=== PATIENT | female | born 1985 | race Caucasian/White ===

== ENCOUNTER 2023-04-16 10:49 | Emergency (ER) | payer BC, SELFPAY ==
--- NOTE | 2023-04-16 11:10 | ED.ANXIETY ---
HPI - Anxiety General Chief Complaint: Anxiety Stated Complaint: anxiety Time Seen by Provider: 04/16/23 11:18 Source: patient Mode of arrival: ambulatory Limitations: no limitations History of Present Illness HPI narrative: 38-year-old female presents with concern for acute anxiety. She reports history of anxiety for which she takes Lexapro. She reports she has been on the same dose of Lexapro for about 8 years. She reports she has had increased anxiety over the last week. She reports it is causing her difficulty sleeping, nausea, difficulty eating and unclear thinking. She reports she has an appointment with her primary care doctor about it is not until April 29 and does not want to have to deal with the symptoms until then. She denies suicidal thoughts or ideations. MD complaint: anxiety Related Data Home Medications Medication Instructions Recorded Confirmed ethynodiol diacetate-ethinyl 1 tablet DIRECTED 04/16/23 04/16/23 estradiol 1 mg-35 mcg tablet Allergies Allergy/AdvReac Type Severity Reaction Status Date / Time diphenhydramine Allergy Intermediate Anxiety Verified 04/16/23 11:16 [From Laura] Review of Systems Review of Systems: CONSTITUTIONAL: Denies malaise, chills, sweats, or fever. Reports difficulty sleeping CARDIOVASCULAR: Denies chest pain, palpitations, or edema. RESPIRATORY: Denies cough or dyspnea. GASTROINTESTINAL: Denies abdominal pain, vomiting. Reports nausea and decreased appetite PSYCHIATRIC: Reports anxiety All systems reviewed & are unremarkable except as noted in HPI and below PMFSH Past Medical History Medical History (Updated 04/16/23 @ 11:37 by Gardenia Quinteros NP) Thaddeus-Danlos syndrome Seasonal allergic rhinitis Social History Social History Smoking status: Never smoker Alcohol intake: never Comments At time of signature, agree with nursing past medical, surgical, social and family history. There is no relevant family history pertinent to the presenting complaint Exam Narrative: GENERAL: Well-appearing, well-nourished, and in no acute distress. HEAD: Normocephalic, atraumatic. EYES: PERRLA, sclera clear ENT: Nares clear. Mucous membranes moist. NECK: Supple. CHEST: No respiratory distress. Clear to auscultation. No bony deformities, no asymmetry. Speaks in full sentences. HEART: Regular rate and rhythm. No murmur heard. Normal peripheral pulses. SKIN: Warm, dry, no visible rash. NEURO: Alert and oriented x3. PSYCH: Slightly tearful Course Course Emergency Course: Patient states that she has occasionally used Xanax when she has had acute anxiety attacks that has helped her come out of them. She reports she does not have a current prescription, she cannot get in her doctor until April 29. I told her I can not prescribe few until she sees her doctor, if she has worsening symptoms she is go to the emergency room. Patient is aware of diagnosis, understands and agrees to treatment plan. Anticipatory guidance given. Patient agrees to follow-up as directed and is aware of reasons to seek care at the emergency department. Portions of this record may have been created with voice recognition software Level of Care: Express Care Visit Vital Signs Vital signs: Reviewed. Critical Care Time Critical Care Time Critical Care Time: No Discharge Plan Discharge Clinical Impression: Acute anxiety Patient Disposition: Home, Self-Care Condition: Stable Instructions: Anxiety (ED) Additional Instructions: 1) Please follow-up with your primary care doctor as soon as he can. 2) If you have any worsening of symptoms or any other urgent concerns please go to the ER. 3) Please take medications as prescribed and continue taking your home medications as usual. 4) Please read and follow information included in discharge instructions. Prescriptions: New alprazolam [Xanax] 0.5 mg tablet 0.5 mg PO BID PRN (Reason: anxiety) Q
[2023-04-16 11:15] VITALS: BP 144/90; PULSE 99; RESP 16; TEMP 36.3; O2SAT 100
== END 2023-04-16 11:50 | disposition home or self-care (01) ==
PROVIDERS: Emergency Provider Nurse Practitioner; PCP Family Medicine
DX: F41.9 Anxiety disorder, unspecified (principal); Q79.60 Ehlers-Danlos syndrome, unspecified
CPT/HCPCS: 99213; G0463

== ENCOUNTER 2023-10-23 08:34 | Outpatient (CLI) | payer BC, SELFPAY ==
--- NOTE | ~2023-10-23 | DEXA_ITS ---
Bone Density Report Name: DIO LUU Age: 38 Sex: Female Ethnicity: White Date of : 1985 Indication: postmenopausal; secondary osteoporosis; Referring Provider: DEE DEE MATT Study: Bone densitometry was performed. Exam Date: October 23, 2023 Accession number: [id number] Bone Density: Region BMD T-score Z-score Classification AP Spine(L1-L4) 0.817 -2.1 -1.9 Osteopenia Femoral Neck (Left) 0.556 -2.6 -2.4 Osteoporosis Total Hip (Left) 0.710 -1.9 -1.8 Osteopenia Femoral Neck (Right) 0.598 -2.3 -2.0 Osteopenia Total Hip (Right) 0.733 -1.7 -1.6 Osteopenia Total Hip Mean 0.721 -1.8 -1.7 Osteopenia World Health Organization criteria for BMD impression classify patients as: Normal (T-score at or above -1.0), Osteopenia (T-score between -1.0 and -2.5), or Osteoporosis (T-score at or below -2.5). 10-year Fracture Risk: FRAX not reported because: Some T-score for Spine Total or Hip Total or Femoral Neck at or below -2.5 Clinical Information Provided by Patient: Has secondary osteoporosis Has used the following medications: Calcium Patient maximum height was 66 Menopause Age: 23 Drinks caffeinated beverages Onset of menses at age 14 Number of children 0 Missed period for more than 6 months in a row Impression: The patient has osteoporosis, based on the Left Femoral Neck T-score. Discussion: HIGH RISK OF FRACTURE. BONE DENSITY IS UNDESIRABLY LOW AT ONE OR MORE SKELETAL SITES, CONSISTENT WITH OSTEOPOROSIS. ALSO, BONE DENSITY IS LOWER THAN EXPECTED FOR AGE AND SEX AT ONE OR MORE SKELETAL SITES; RECOMMEND A DILIGENT SEARCH FOR SECONDARY CAUSES OF BONE LOSS. This patient's lowest T-score meets the World Health Organization's (WHO) criteria for osteoporosis at one or more sites (T-score -2.5 or below). In untreated patients, the risk of osteoporotic fracture increases approximately two-fold for each 1.0 SD decrease in T-score. Low bone density is not the only risk factor for fracture; also consider factors such as patient's age, frailty or poor health, risk of falling, risk of injury, previous osteoporotic fracture, family history of osteoporosis, cigarette smoking, low body weight, etc. Not everyone with low bone mineral density has osteoporosis; osteomalacia and other metabolic bone disorders should also be considered. Patients who have osteoporosis should be evaluated for specific diseases and conditions (secondary causes) that may cause or contribute to bone loss. The [place] Association of Clinical Endocrinologists (AACE) and National Osteoporosis Foundation (NOF) recommend pharmacologic intervention for all postmenopausal women whose T-score is in this range. Also, this patient's bone mineral density is below the range considered normal for healthy age-, sex-, and race-matched controls at least one site (Z-score -2.0 or below). This warrants careful evaluation for diseases and con
== END 2023-10-23 08:35 | disposition home or self-care (01) ==
PROVIDERS: PCP Family Medicine; Visit Provider Nurse Practitioner Family
DX: M85.80 Other specified disorders of bone density and structure, unspecified site (principal); Z78.0 Asymptomatic menopausal state
CPT/HCPCS: 77080

== ENCOUNTER 2024-01-15 09:39 | Emergency (ER) | payer BC, SELFPAY ==
--- NOTE | ~2024-01-15 | XR_ITS ---
EXAMINATION: XR chest 2V 01/15/2024 10:06 INDICATION: Cough for 3 weeks PROCEDURE: 2 view chest COMPARISON: No prior studies for comparison. FINDINGS: The lungs are clear. The cardiomediastinal silhouette is within normal limits. There are no pleural effusions. There is no pneumothorax suspected. IMPRESSION: 1: NO ACUTE CARDIOPULMONARY DISEASE. Reviewed, dictated and finalized at location B.
--- NOTE | 2024-01-15 09:44 | ED.URI ---
HPI - URI/Sore Throat General Chief Complaint: Upper Respiratory Infection Stated Complaint: Cough Time Seen by Provider: 01/15/24 09:44 Source: patient Mode of arrival: ambulatory Limitations: no limitations History of Present Illness HPI Narrative: Dara is a 38-year-old female patient presenting to the clinic today with complaints of a persistent cough x3 weeks. She reports sometimes the cough is dry and other times it can be productive. Is bringing up some green phlegm at times. Does not feel as though she has sinus pressure or congestion currently but does feel as though she has drainage going in the back of her throat. Denies any fever or chills. Denies any hemoptysis. Denies any chest pain or shortness of breath. MD elicited complaint: cough Related Data Home Medications Medication Instructions Recorded Confirmed ethynodiol diacetate-ethinyl 1 tablet DIRECTED 04/16/23 01/15/24 estradiol 1 mg-35 mcg tablet Allergies Allergy/AdvReac Type Severity Reaction Status Date / Time diphenhydramine Allergy Intermediate Anxiety Verified 01/15/24 09:57 [From Benannl] Review of Systems Review of Systems: Pertinent positives per HPI. Patient denies any fever, chills, rash, headache, visual changes, dizziness, shortness of breath, chest pain, palpitations, nausea, vomiting, diarrhea, constipation, abdominal pain, or any urinary issues. PMFSH Past Medical History Medical History Cough Thaddeus-Danlos syndrome Encounter to establish care Headache Migraine Osteoporosis Premature ovarian failure Seasonal allergic rhinitis Family History Family History Father Pre-diabetes Depression Mother Pre-diabetes Depression Cardiac arrhythmia Social History Social History Smoking status: Never smoker Alcohol intake: never Substance use: never Substance use type: does not use Comments At the time of my signature, I reviewed and agree with the nursing past medical, surgical, social, and family history. There is no relevant family history pertinent to the patient complaint. Exam Narrative: General: Well-developed, well nourished, in no apparent distress Head: Normocephalic, atraumatic Eyes: Pupils equally round and reactive to light bilaterally, EOM intact, sclera and conjunctive clear, no discharge, lids normal Ears:TMs intact and clear, right ear canals clear, left ear canal cerumen impaction, ear irrigation was performed, no drainage, grossly hearing normal. Nose: Nares patent, clear nasal discharge, no inflammation, no sinus tenderness. Mouth: Oral pharynx without lesions or masses, good dentition, MMM. Postnasal drip Neck: Supple, trachea midline, no enlargement of anterior or posterior cervical nodes, no thyroid masses or goiter palpable. Cardio: Regular rate and rhythm, s1 and s2 normal, no murmur appreciated. Resp: Clear to auscultation bilaterally, no rhonchi, rales, wheezing or rubs Course Course Emergency Course: Portions of this record may have been created with voice recognition software. Level of Care: Express Care Visit Vital Signs Vital signs: Vital signs reviewed Procedures Ear Wax Removal Left Ear: Ear Wax Removal Date: 01/15/24 Results: Re-examined: cerumen removed completely TM Examination: TM(s) intact, normal appearance Ear Canal Exam: atraumatic Patient Tolerated Procedure: well Complications: vertigo/dizziness Technique: ear canal irrigated Additional Comments: Verbal consent obtained for ear irrigation. Risk and benefits explained and patient voiced understanding. Ear irrigation performed using an elephant ear and spray water bottle. Mixture of 1/2 peroxide 1/2 water used to irrigate ear canal. Cerumen impaction cleared and TM
[2024-01-15 09:56] VITALS: BP 131/83; PULSE 91; RESP 18; TEMP 36.5; O2SAT 100
[2024-01-15 09:58] VITALS: BP 131/83; PULSE 91; RESP 18; TEMP 36.5; O2SAT 100
== END 2024-01-15 10:32 | disposition home or self-care (01) ==
PROVIDERS: Emergency Provider Nurse Practitioner Family; PCP Family Medicine
DX: H61.22 Impacted cerumen, left ear (principal); R09.82 Postnasal drip; R05.9 Cough, unspecified; Q79.60 Ehlers-Danlos syndrome, unspecified; M81.0 Age-related osteoporosis without current pathological fracture
CPT/HCPCS: 69209; 71046; 99213; G0463

== ENCOUNTER 2024-09-19 15:06 | Emergency (ER) | payer BC, SELFPAY ==
--- NOTE | ~2024-09-19 | XR_ITS ---
HISTORY: fall, swelling/pain over 5th metatarsal COMPARISON: None TECHNIQUE: 3 views of the right foot were performed FINDINGS: No acute fracture or dislocation is appreciated. No significant degenerative disease is noted. The base of the fifth metatarsal is intact. No calcaneal spur is noted. Moderate soft tissue swelling is present. IMPRESSION: Soft tissue swelling without underlying fracture. Reviewed, dictated and finalized at location A. OR CLERK
[2024-09-19 15:23] VITALS: BP 133/77; PULSE 92; RESP 16; TEMP 36.4; O2SAT 100
--- NOTE | 2024-09-19 15:26 | ED_ITS ---
HPI - Extremity Injury (Lower) General Chief Complaint: Extremity Injury, Lower Stated Complaint: R Foot Injury Source: patient Mode of arrival: ambulatory Limitations: no limitations History of Present Illness HPI Narrative: 39-year-old female with history of osteoporosis presented for complaint of right foot bruising, pain and swelling after injury today. She states she missed the last 2 stairs while carrying a large box thinking she was on the landing, and fell landing on the foot. Also says she heard a pop. Denies deformity, numbness, tingling or weakness. No treatment prior to arrival. Has been walking, says it feels sore. Related Data Home Medications ?Medication ?Instructions ?Recorded ?Confirmed ?Last Taken ?Type ethynodiol diacetate-ethinyl 1 tablet DIRECTED 04/16/23 05/07/24 Unknown History estradiol 1 mg-35 mcg tablet calcium carbonate-vitamin D3 PO 05/07/24 05/07/24 Unknown History cholecalciferol (vitamin D3) 50 50 mcg PO DAILY 06/07/24 Unknown History mcg (2,000 unit) capsule Allergies Allergy/AdvReac Type Severity Reaction Status Date / Time diphenhydramine (From Allergy Intermediate Anxiety Verified 09/19/24 15:20 Benadryl) Review of Systems Review of Systems: CONSTITUTIONAL: Denies body aches, fever, chills CARDIOVASCULAR: Denies chest pain, palpitations, or edema. RESPIRATORY: Denies cough or dyspnea. SKIN: Denies rash, itching, or wounds. MUSCULOSKELETAL: Reports right foot pain and swelling, bruising NEUROLOGIC: Denies numbness, tingling, or weakness. All systems reviewed & are unremarkable except as noted in HPI and below PMFSH Past Medical History Medical History Cough Osteoporosis Encounter to establish care Migraine Premature ovarian failure Headache Thaddeus-Danlos syndrome Seasonal allergic rhinitis Family History Family History Father Pre-diabetes Depression Mother Pre-diabetes Depression Cardiac arrhythmia Social History Social History Smoking status: Never smoker Alcohol intake: never Substance use: never Substance use type: does not use Comments At time of signature, I have reviewed and agree with nursing past medical, surgical, social and family history unless otherwise noted. Please see nursing chart for further information. There is no relevant family history pertinent to the presenting complaint Exam Narrative: GENERAL: Well-appearing CHEST: Speaks in full sentences. No respiratory distress. HEART: Regular rate and rhythm. Normal and equal peripheral pulses. EXTREMITIES: right foot has normal strength and sensation, normal range of motion without significant pain with movement. Localized area of Swelling and ecchymosis to mid foot over 3rd-5th metatarsals; Minimal tenderness. No open wounds, or obvious deformity; alignment normal, pulse palpable and equal bilaterally, skin warm, dry, pink. Capillary refill less than 3 seconds. SKIN: Warm, dry, no rash. NEURO: Alert and oriented x3. PSYCH: Normal mood and affect Course Course Emergency Course: Patient is aware of diagnosis, understands and agrees to treatment plan. Anticipatory guidance given. Patient agrees to follow-up as directed and is aware of reasons to seek care at the emergency department. Portions of this record may have been created with voice recognition software Level of Care: Express Care Visit Vital Signs Vital signs: Vital Signs Temperature 97.6 F 09/19/24 15:23 Pulse Rate 92 09/19/24 15:23 Respiratory Rate 16 09/19/24 15:23 Blood Pressure 133/77 09/19/24 15:23 Pulse Oximetry 100 09/19/24 15:23 Temperature 97.6 F 09/19/24 15:23 Pulse Rate 92 09/19/24 15:23 Respiratory Rate 16 09/19/24 15:23 Blood Pressure 133/77 09/19/24 15:23 Pulse Oximetry 100 09/19/24 15:23 Reviewed MDM - Extremity Injury (Lower) MDM Narrative Medical decision making narrative: Discussed physical exam findings and xray. LOUISE applied. Advised supportive measures and signs/symptoms to go to the ER. Pt is appropriate for outpt treatment and f/u. Differential Diagnosis Differential diagnosis: Likely ankle sprain and strain, fracture of toe, ankle fracture and other (foot fracture) Imaging Data Radiologist's impression: Patient: Dara Gonzalez : 1985 MR#: [id number] Age: 39 Acct:[id number] Loc: [facility] ADM Date: 09/19/24Attending Dr: Ordering Physician: Amelia Christian APRN Date of Service: 09/19/24 Procedure(s): XR foot RT min 3V Accession Number(s): [id number] cc: Poppy Gregory APN; Amelia Christian APRN~ HISTORY: fall, swelling/pain over 5th metatarsal COMPARISON: None TECHNIQUE: 3 views of the right foot were performed FINDINGS: No acute fracture or dislocation is appreciated. No significant degenerative disease is noted. The base of the fifth metatarsal is intact. No calcaneal spur is noted. Moderate soft tissue swelling is present. IMPRESSION: Soft tissue swelling without underlying fracture. Discharge Plan Discharge Clinical Impression: Foot sprain Qualifiers: Encounter type: initial encounter Laterality: right Qualified Code(s): S93.601A - Unspecified sprain of right foot, initial encounter Patient Disposition: Home, Self-Care Condition: Stable Instructions: Foot Sprain (ED) Additional Instructions: Rest and elevate the right leg; bear weight as tolerated Apply ice 15-20 minute intervals several times a day Keep it wrapped with LOUISE as needed Motrin 800mg every 8 hours, alternate with Tylenol 1000mg every 8 hours as needed Follow up with your primary care provider as needed Go to the ER for worsening symptoms or concerns Patient Language: Telugu Prescriptions: No Action ethynodiol diac-eth estradiol 1-35 mg-mcg tablet 1 tablet DIRECTED calcium carbonate-vitamin D3 PO escitalopram oxalate [Lexapro] 20 mg tablet 20 mg PO DAILY Qty: 90 3RF cholecalciferol (vitamin D3) 50 mcg (2,000 unit) capsule 50 mcg PO DAILY Follow-up/Referrals: Poppy Gregory NP [Primary Care Provider] - Ronald Givens MD [Physician] - Time of Disposition: 16:01
--- OUTSIDE RECORDS SUMMARY | 2024-09-26 18:24 | XMS_ITS | Encounter Summary ---
Author Organization [facility] Medical [facility] Address [address] [place] [address] Care Team Providers Care Wire Drawing Die Maker Name Role Phone Jessica Eller Primary Care Provider [phone]- [phone] Reason for Visit * Reason Onset Date Comments Cough 09/27/2022 Encounter Details Date Type Department Care Team (Late st Contact Info) Description 09/27/2022 Nurse Triage [facility] Family Medicine [address] [place] [address] Jessica Eller PA [address] [place], [place] [id number] Social History Tobacco Use Types Packs/Day Years Used Date Smoking Tobacco: Never Smokeless Tobacco: Never Alcohol Use Standard Drinks/Week Comments Never 0 (1 standard drink = 0.6 oz pur e alcohol) AUDIT-C Answer Date Recorded Q1: How often do you have a drink containing alcohol? Never 05/09/2022 Q2: How many drinks containi ng alcohol do you have on a typical day when you are drinking? Patient does not drink Q3: How often do you have si x or more drinks on one occasion? Never 05/09/2022 PHQ-2 Answer Date Recorded PHQ-2 Total Score (If total score is 3 or more points, staff should administer the PHQ-9) 0 05/09/2022 Comments Unknown Sex and Gender Information Value Date Recorded Sex Assigned at Not on file Legal Sex Female 7:34 PM ELECTROPLATER HELPER Gender Identity Not on file Sexual Orientation Not on file documented as of this encounter Miscellaneous Notes * Telephone Encounter - Alvina Lemus RN - 09/27/2022 12:15 PM ELECTROPLATER HELPER Dara is reporting continued productive cough from influenza 2 weeks ago. She states that she is able to get mucous up to her throat but not able to expectorate. She reports shortness of breath when cough episodes are prolonged. She reports chest tightness when coughing. Cough is worse at night. Denies: severe shortness of breath, fever, wheezing Disposition: see today in office. No avail appt today. Dara declines avail appt at [facility] today and plans to call them tomorrow for a walk in appt. marine electrician helper provides Dara the address and phone number to . marine electrician helper instructs Dara to increase fluid intake, rest, use humidifier, OTC Mucinex as directed onpackage and to call back if symptoms worsen or do not improve. Reason for Disposition SEVERE coughing spells (e.g., whooping sound after coughing, vomiting after coughing) Protocols used: [id number] TROPLATER HELPER * Telephone Encounter - Alvina Lemus RN - 09/27/2022 12:12 PM ELECTROPLATER HELPER Regarding: cough from flu lingering x 2 weeks ----- Message from Ai Riley MA sent at 09/27/2022 9:23 AM ELECTROPLATER HELPER ----- Symptom Based Call Chief Complaint: cough from flu lingering x 2 weeks Did you review 911/Red Flag List?Yes Duration: 2 weeks Why was appointment not scheduled? Unable to meet sandro's need for appt, next available 10/23 Caller's Callback #: [phone] Additional Comments: patient had the flu 2 weeks ago, she has been coughing since, coughs when she talks or on exertion, coughs to the point of gagging. At night it seems worse, no congestion or drainage, she feels like she is coughing up stuff, there is phlegm in throat, but unable to cough it out. Does message need to be routed? Yes-Action Needed TROPLATER HELPER documented in this encounter Plan of Treatment Not on file documented as of this encounter Visit Diagnoses Not on filedocumented in this encounter Care Teams Wire Drawing Die Maker Relationship Specialty Start Date End Date Jessica Eller PA [address] [place] [place] [address] [place] [address] PCP - General Internal Medicine 07/20/20 documented as of this encounter
--- OUTSIDE RECORDS SUMMARY | 2024-09-26 18:24 | XMS_ITS | Encounter Summary ---
Author Organization [facility] Medical Group Address [address] [place] [address] Care Team Providers Care Flux Tube Attendant Name Role Phone Jessica Eller Primary Care Provider [phone]- [phone] Reason for Visit * Reason Onset Date Comments Med Refill 10/18/2020 Encounter Details Date Type Department Care Team (Late st Contact Info) Description 10/18/2020 Telephone [facility] Family Medicine [address] [place] [address] Jessica Eller PA [address] [place] [address] Med Refill Social History Tobacco Use Types Packs/Day Years Used Date Smoking Tobacco: Never Smokeless Tobacco: Never Alcohol Use Standard Drinks/Week Comments Never 0 (1 standard drink = 0.6 oz pur e alcohol) AUDIT-C Answer Date Recorded Q1: How often do you have a drink containing alc ohol? Never 08/22/2020 Average Number of Drinks Not on file 020 Frequency of Binge Drinking Not on file 09/2019 PHQ-2 Answer Date Recorded PHQ-2 Total Score (If total score is 3 or more points, staff should administer the PHQ-9) 0 08/22/2020 Comments Unknown Sex and Gender Information Value Date Recorded Sex Assigned at Not on file Legal Sex Female 7:34 PM RETAIL SUPPORT SPECIALIST Gender Identity Not on file Sexual Orientation Not on file documented as of this encounter Ordered Prescriptions Prescription Sig Dispense Quantity Refills Last Filled Start Date End Date busPIRone (BUSPAR) 15 mg tabletIndications: Generalized Anxiety Disorder Take 0.5 tablets (7.5 mg total) by mouth 3 (three) times a day 135 tablet 1 10/18/2020 documented in this encounter Miscellaneous Notes * Addendum Note - Jessica Eller PA - 10/18/2020 4:13 PM CSTAddended by: JESSICA ELLER on: 10/18/2020 04:13 PM Modules accepted: Orders [place] SUPPORT SPECIALIST * Telephone Encounter - Jessica Eller PA - 10/18/2020 4:13 PM RETAIL SUPPORT SPECIALIST New rx sent [place] SUPPORT SPECIALIST * Telephone Encounter - Varsha Chinchilla LPN - 10/18/2020 2:02 PM RETAIL SUPPORT SPECIALIST 7.5mg Buspar denied by insurance. Spoke to pt, she is ok with cutting 15mg in half to achieve dosage. Please send script to [facility]. [place] SUPPORT SPECIALIST documented in this encounter Plan of Treatment Not on file documented as of this encounter Visit Diagnoses Not on filedocumented in this encounter Discontinued Medications Medication Sig Discontinue Reason Start Date End Da te busPIRone (BUSPAR) 7.5 mg tabletIndications:Genera lized Anxiety Disorder Take 1 tablet (7.5 mg total) by mouth 3 (three) times a day 08/22/2020 10/18/2020 documented as of this encounter Care Teams Flux Tube Attendant Relationship Specialty Start Date End Date Jessica Eller PA [address] [place] [address] PCP - General Internal Medicine 07/20/20 documented as of this encounter
--- OUTSIDE RECORDS SUMMARY | 2024-09-26 18:24 | XMS_ITS | Encounter Summary ---
Author Organization [facility] Address [address] [facility] [address] [place] [address] Care Team Providers Care Art Librarian Name Role Phone Jessica Eller Primary Care Provider [phone]- [phone] Reason for Visit * Reason Comments Wellness Visit Encounter Details Date Type Department Care Team (Late st Contact Info) Description 05/09/2022 8:30 AM CDT Office Visit [facility] Family Medicine [address] [place] [address] Jessica Eller PA [address] [place] [address] Annual physical exam (Primary Dx); Anxiety; Lipid screening; Diabetes mellitus screening; Fatigue, unspecified type; Premature ovarian failure; Uses control; Adult BMI <19 kg/sq m Social History Tobacco Use Types Packs/Day Years [...] on file Legal 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 Gender Identity Not on file Sexual Orientation Not on file documented as of this encounter Last Filed Vital Signs Vital Sign Reading Time Taken Comments Blood Pressure 114/68 05/09/2022 8:27 AM CDT Pulse 80 05/09/2022 8:27 AM CDT Temperature 36.8 ??C (98.3 ??F) 05/09/2022 8:27 AM CD T Respiratory Rate 18 05/09/2022 8:27 AM CDT Oxygen Saturation 98% 05/09/2022 8:27 AM CDT Inhaled Oxygen Concentration - - Weight 55.6 kg (122 lb 9.6 oz) 05/09/2022 8:27 A M CDT Height 167.6 cm (5' 5.98 ) 05/09/2022 8:27 AM CD T Body Mass Index 19.8 05/09/2022 8:27 AM CDT documented in this encounter Ordered Prescriptions Prescription Sig Dispense Quantity Refills Last Filled Start Date End Date escitalopram (LEXAPRO) 20 mg tabletIndications: Anxiety Take 1 tablet (20 mg total) by mouth daily 90 tablet 1 05/09/2022 escitalopram (LEXAPRO) 20 mg tabletIndications: Anxiety Take 1 tablet (20 mg total) by mouth daily 90 tablet 1 05/09/2022 05/09/2022 documented in this encounter Progress Notes * Jessica Eller PA - 05/09/2022 8:30 AM CDT Images from the original note were not included. Subjective/Objective Patient ID: Dara Gonzalez is a 37 y.o. female. Chief Complaint Wellness Visit HPI Patient presents for wellness exam and followup chronic concerns. Lexapro 20mg ?? In 06/2021 had to stop the buspar due to heart palpitations. She stated she was doing ok with just the lexapro 20mg. Ionly has an anxiety issue about every 2 months now. Got a dog and is helping. POF--> OCP [facility] has helped with [place]. Not a smoker Pap - Katia JUN 2021 normal per her recal; Tdap 2019 Review of Systems See HPI Vitals: 05/09/22 0827 BP: 114/68 BP Location: Left arm Patient Position: Sitting Pulse: 80 Resp: 18 Temp: 36.8 ??C (98.3 ??F) TempSrc: Oral SpO2: 98% Weight: 55.6 kg (122 lb 9.6 oz) Height: 167.6 cm (5' 5.98 ) Physical Exam Vitals and nursing note reviewed. Constitutional: Appearance: She is well-developed. HENT: Head: Normocephalic and atraumatic. Eyes: Comments: Pupils are equal Cardiovascular: Rate and Rhythm: Normal rate and regular rhythm. Heart sounds: No murmur heard. Pulmonary: Effort: Pulmonary effort is normal. Breath sounds: Normal breath sounds. Abdominal: Palpations: Abdomen is soft. Tenderness: There is no abdominal tenderness. Skin: General: Skin is warm and dry. Findings: No rash. Neurological: Mental Status: She is alert and oriented to person, place, and time. Assessment/Plan Diagnoses and all orders for this visit: Annual physical exam (Z00.00) (Primary) Assessment & Plan: Encouraged healthy lifestyle, good nutrition and exercise. Encouraged Calcium and Vitamin D and weight bearing exercise for bone health. Reviewed immunizations Reviewed age appropirate screenings. Anxiety (F41.9) Assessment & Plan: Stable with Lexapro 20. Has refills at home Orders: - escitalopram (LEXAPRO) 20 mg tablet; Take 1 tablet (20 mg total) by mouth daily Lipid screening (Z13.220) Assessment & Plan: Check labs Orders: - Lipid panel; Future Diabetes mellitus screening (Z13.1) Assessment & Plan: Check labs Orders: - Hemoglobin A1c; Future Fatigue, unspecified type (R53.83) Assessment & Plan: Probably multifactorial. Check labs and followup to re-evaluate Orders: - CBC with auto differential; Future - Comprehensive metabolic panel; Future - TSH; Future Premature ovarian failure (E28.39) Assessment & Plan: FSH was very high at 23. Told POF and has been on ocp since. Managed by Dr. Anderson Uses control (Z78.9) Assessment & Plan: Doing well with to OCP for her premature ovarian failure. She is not a smoker Adult BMI <19 kg/sq m (Z68.1) Assessment & Plan: Weight/BMI is in healthy range. Continue healthy lifestyle to maintain. *This note is dictated using [employer] voice recognition software, variances in spelling and vocabulary are possible and unintentional.* Jessica Eller PA-C Cosigned by Arun Gonzalez MD at 05/12/2022 7:34 AM CDT documented in this encounter Miscellaneous Notes * Assessment & Plan Note - Jessica Eller PA - 05/11/2022 8:05 PM CDT Associated Problem(s): Fatigue Probably multifactorial. Check labs and followup to re-evaluate * Assessment & Plan Note - Jessica Eller PA - 05/11/2022 8:05 PM CDT Associated Problem(s): Diabetes mellitus screening Check labs * Assessment & Plan Note - Jessica Eller PA - 05/11/2022 8:05 PM CDT Associated Problem(s): Lipid screening Check labs * Assessment & Plan Note - Jessica Eller PA - 05/11/2022 8:01 PM CDT Associated Problem(s): Annual physical exam Encouraged healthy lifestyle, good nutrition and exercise. Encouraged Calcium and Vitamin D and weight bearing exercise for bone health. Reviewed immunizations Reviewed age appropirate screenings. * Assessment & Plan Note - Jessica Eller PA - 05/11/2022 8:00 PM CDT Associated Problem(s): Adult BMI <19 kg/sq m (Resolved 03/26/2023) Weight/BMI is in healthy range. Continue healthy lifestyle to maintain. * Assessment & Plan Note - Jessica Eller PA - 05/11/2022 7:59 PM CDT Associated Problem(s): Uses control Doing well with to OCP for her premature ovarian failure. She is not a smoker * Assessment & Plan Note - Jessica Eller PA - 05/11/2022 7:59 PM CDT Associated Problem(s): Anxiety Stable with Lexapro 20. Has refills at home * Assessment & Plan Note - Jessica Eller PA - 05/09/2022 8:59 AM CDT Associated Problem(s): Premature ovarian failure FSH was very high at 23. Told POF and has been on ocp since. Managed by Dr. Anderson documented in this encounter Plan of Treatment Scheduled Orders Name Type Priority Associated Diagnoses Orde r Schedule CBC with auto differential Lab Routine Fatigue, unspecified type Expected: 05/09/2022, Expires: 05/09/2023 Comprehensive metabolic panel Lab Routine Fatigue, unspecified type Expected: 05/09/2022, Expires: 05/09/2023 Hemoglobin A1c Lab Routine Diabetes mellitus screening Expected: 05/09/2022, Expires: 05/09/2023 Lipid panel Lab Routine Lipid screening Expected: 05/09/2023, Expires: 05/09/2023 TSH Lab Routine Fatigue, unspecified type Expected: 05/09/2022, Expires: 05/09/2023 documented as of this encounter Visit Diagnoses Diagnosis Annual physical exam- Primary Routine general medical examination at a health care facility Anxiety Anxiety state, unspecified Lipid screening Screening for lipoid disorders Diabetes mellitus screening Screening for diabetes mellitus Fatigue, unspecified type Premature ovarian failure Other ovarian dysfunction Uses control Adult BMI <19 kg/sq m Body Mass Index less than 19, adult documented in this encounter Discontinued Medications Medication Sig Discontinue Reason Start Date End Da te escitalopram (LEXAPRO) 20 mg tabletIndications:Anxi ety Take 1 tablet (20 mg total) by mouth daily PLEASE call the office to schedule your wellness exam and to obtain additional refills. Reorder 04/09/2022 05/09/2022 escitalopram (LEXAPRO) 20 mg tabletIndications:Anxi ety Take 1 tablet (20 mg total) by mouth daily Reorder 05/09/2022 05/09/2022 documented as of this encounter Care Teams Art Librarian Relationship Specialty Start Date End Date Jessica Eller PA [address] [facility] [address] [place] [address] PCP - General Internal Medicine 07/20/20 documented as of this encounter
--- OUTSIDE RECORDS SUMMARY | 2024-09-26 18:24 | XMS_ITS | Encounter Summary ---
Author Organization [facility] Care Team Providers Care Typing Element Machine Operator Name Role Phone Unavailable Primary Care Provider Unavailabl e Encounter Details Date Type Department Care Team (Latest Contact Info) Description 10/12/2008 11:40 AM HEAD SULFIDE OPERATOR Hospital Encounter [facility] Dilma Covington MD [address] [facility] [address] [place] [address] Vitamin D deficiency Social History Tobacco Use Types Packs/Day Years Used Date Smoking Tobacco: Never Assessed Comments Unknown Sex and Gender Information Value Date Recorded Sex Assigned at Not on file 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
--- OUTSIDE RECORDS SUMMARY | 2024-09-26 18:24 | XMS_ITS | Clinical Summary ---
Author Organization [facility] [address] [facility] Address [address] [place] [address] Care Team Providers Care Plunger Shovel Operator Name Role Phone Jessica Eller Primary Care Provider [phone]- [phone] Allergies Active Allergy Reactions Criticality Noted Date Comments Diphenhydramine Anxiety,Hallucinatio ns,Palpitations,S hortness of breath High 03/19/2023 Medications ethynodiol diac-eth estradioL (KELNOR,ZOVIA) 1-35 mg-mcg per tablet 08/06/2020 Active escitalopram (LEXAPRO) 20 mg tabletIndication s:Anxiety Take 1 tablet (20 mg total) by mouth daily 90 tablet 1 05/09/2022 Active busPIRone (BUSPAR) 10 mg tabletIndication s:Generalized Anxiety Disorder Take 1 tablet (10 mg total) by mouth 3 (three) times a day 90 tablet 3 03/30/2023 Active Active Problems Problem Noted Date Diagnosed Date BMI 20.0-20.9, adult 03/26/2023 Assessment & Plan (03/26/2023 11:23 AM CDT): Weight/BMI is in healthy range. Continue healthy lifestyle to maintain. Lipid screening 05/11/2022 Assessment & Plan (05/11/2022 8:05 PM CDT): Check labs Diabetes mellitus screening 05/11/2022 Assessment & Plan (05/11/2022 8:05 PM CDT): Check labs Fatigue 05/11/2022 Assessment & Plan (05/11/2022 8:06 PM CDT): Probably multifactorial. Check labs and followup to re-evaluate Annual physical exam 05/09/2022 Assessment & Plan (05/11/2022 8:04 PM CDT): Encouraged healthy lifestyle, good nutrition and exercise. Encouraged Calcium and Vitamin D and weight bearing exercise for bone health. Reviewed immunizations Reviewed age appropirate screenings. Premature ovarian failure 05/09/2022 Assessment & Plan (05/11/2022 8:05 PM CDT): FSH was very high at 23. Told POF and has been on ocp since. Managed by Dr. Anderson Flu vaccine need 07/07/2021 Assessment & Plan (07/07/2021 8:30 PM CDT): Vaccine updated in office today Anxiety 09/03/2020 Assessment & Plan (03/26/2023 5:23 PM CDT): Continue taking Lexapro 20 mg daily. Restart Buspar daily. Prescription made for 10 mg Buspar TID. Discussed with patient that this medication can be used as maintenance or as needed. Encouraged patient to take at least one in the morning and one in the evening, leaving the third dose as needed until she feels her mood is more stable. Then she may be able to take only one in the morning and then additionally as needed. Patient was shown online resources for finding counseling. Assessment & Plan (05/11/2022 7:59 PM CDT): Stable with Lexapro 20. Has refills at home Assessment & Plan (07/07/2021 8:29 PM CDT): Stable with Lexapro 20 mg. Will send refills. She is to call she has increased symptoms. Assessment & Plan (02/05/2021 10:47 PM CDT): BuSpar 15 mg b.i.d. and Lexapro 20 mg has made all the difference. Will continue the same dosing and continue to monitor. If she has any increase in her symptoms she may call for adjustment. Assessment & Plan (10/30/2020 12:09 PM ASSOCIATE): Continue the lexapro. Increase the Buspar to 10mg tid. She can break the 15mg into thirds to make the 10mg. Recheck in 4-6 weeks and if controlled well will change to 10mg tabs. Assessment & Plan (09/03/2020 7:56 PM ASSOCIATE): This is a significant, separately identifiable problem that was evaluated and managed on the same day as the wellness exam Patient has done well with the lexapro but still has break thru anxiety on a daily basis. Discussed treatment options. Buspar 7.5mg tid Reviewed risks, benefit, alternatives, side effects and proper use. Uses control 09/03/2020 Assessment & Plan (05/11/2022 8:00 PM CDT): Doing well with to OCP for her premature ovarian failure. She is not a smoker Assessment & Plan (09/03/2020 7:58 PM ASSOCIATE): Happy with ocp Resolved Problems Problem Noted Date Diagnosed Date Resolved Date Adult BMI <19 kg/sq m 07/06/20212022 Assessment & Plan (05/11/2022 8:01 PM CDT): Weight/BMI is in healthy range. Continue healthy lifestyle to maintain. Assessment & Plan (07/06/2021 10:14 AM CDT): Weight/BMI is in healthy range. Continue healthy lifestyle to maintain. Adult BMI <19 kg/sq m 01/16/20212020 Assessment & Plan (01/16/2021 11:03 AM CDT): Weight/BMI is in healthy range. Continue healthy lifestyle to maintain. Annual physical exam 08/22/2020 1016/2 021 Assessment & Plan (09/03/2020 7:55 PM ASSOCIATE): Encouraged healthy lifestyle, good nutrition and exercise. Encouraged Calcium and Vitamin D and weight bearing exercise for bone health. Reviewed immunizations Reviewed age appropirate screenings. Diabetes mellitus screening 08/22/2020 07/07/2021 Assessment & Plan (09/03/2020 7:57 PM ASSOCIATE): Check labs Lipid screening 08/22/2020 07/07/2021 Assessment & Plan (09/03/2020 7:57 PM ASSOCIATE): Check labs Other fatigue 08/22/2020 07/07/2021 Assessment & Plan (09/03/2020 7:58 PM ASSOCIATE): Probably multifactorial. Check labs and followup to re-evaluate Need for Tdap vaccination 08/22/2020 Assessment & Plan (09/03/2020 7:57 PM ASSOCIATE): Updated in office today Immunizations Name Administration Dates Next Due Influenza, Quadrivalent, Spl it, Preservative Free, Intramuscular 07/06/2021 Influenza, Trivalent, IM (MDV) 09/07/2014 Influenza, Unspecified 10/23/2022(Deferr ed: Patient Refused),10/23/2021(Deferred: Patient Refused),06/22/2020 Pfizer SARS-CoV-2 Monovalent Vaccination (12+ Yrs) PURPLE 12/31/2020,12/07/2020 Tdap 08/22/2020 Medical History Medical History Date Comments Allergic Anxiety Family History Medical History Relation Name Comments No Known Problems Father Cancer Maternal Grandfather Osteoporosis Maternal Grandmother Diabetes Mother No Known Problems Paternal Grandfather Stroke Paternal Grandmother Relation Name Status Comments Father Alive Maternal Grandfather Maternal Grandmother Mother Alive Paternal Grandfather Paternal Grandmother Social History Tobacco Use Types Packs/Day Years Used Date Smoking Tobacco: Never Smokeless Tobacco: Never Tobacco Cessation:Counseling Given: Not Answered Alcohol Use Standard Drinks/Week Comments Never 0 (1 standard drink = 0.6 oz pur e alcohol) AUDIT-C Answer Date Recorded Q1: How often do you have a drink containing alcohol? Never 03/26/2023 Q2: How many drinks containi ng alcohol do you have on a typical day when you are drinking? Patient does not drink Q3: How often do you have si x or more drinks on one occasion? Never 03/26/2023 PHQ-2 Answer Date Recorded PHQ-2 Total Score (If total score is 3 or more points, staff should administer the PHQ-9) 1 03/26/2023 Personal Safety Answer Date Recorded Getting School Help Needed Not on file 10/25 Comments Unknown Sex and Gender Information Value Date Recorded Sex Assigned at Not on file Legal Sex Female 7:34 PM ASSOCIATE Gender Identity Not on file Sexual Orientation Not on file Obstetrics History Last Filed Vital Signs Vital Sign Reading Time Taken Comments Blood Pressure 110/70 03/26/2023 11:20 AM CDT Pulse 80 03/26/2023 11:20 AM CDT Temperature 36.8 ??C (98.2 ??F) 03/26/2023 11:20 AM C DT Respiratory Rate 18 05/09/2022 8:27 AM CDT Oxygen Saturation 99% 03/26/2023 11:20 AM CDT Inhaled Oxygen Concentration - - Weight 57.3 kg (126 lb 4.8 oz) 03/26/2023 11:20 AM CDT Height 167.6 cm (5' 5.98 ) 03/26/2023 11:20 AM C DT Body Mass Index 20.4 03/26/2023 11:20 AM CDT Plan of Treatment Health Maintenance Due Date Last Done Comments Hepatitis C Screening 1985 Varicella Vaccines (1 of 2 - 13+ 2-dose series) 1998 Hepatitis B Screening 2003 Regular Well Visit/Exam 18-64 05/09/2023 05/09/2022, 08/22/2020 Cervical Cancer Screening 10/19/20232022, 10/19/2022, 10/17/2022 Depression Screening 03/26/2024 03/26/2023, 05/09/2022, 01/16/2021, Additional history exists Covid-19 Vaccine ( season) 2024 12/31/2020, 12/07/2020 Influenza Vaccine (#1) 2024 , 06/22/2020, 09/07/2014 DTaP/Tdap/Td Vaccine (2 - Td or Tdap) 08/22/2030 08/22/2020 HPV Vaccines Aged Out No longer eligi ble based on patient's age to complete this topic Pneumococcal vaccine <65 Aged Out No longer eligible based on patient's age to complete this topic Procedures Procedure Name Priority Date/Time Associated Diagnosis Comments PAP ONLY Routine 10/19/2022 2:19 PM ASSOCIATE from Last 3 Months or Most Recently Relevant to Health Maintenance Results * Pap Only (10/19/2022 2:19 PM ASSOCIATE) Thin prep us Historical Provider MD LAB CYTOLOGY ORDERABLES E dited Result - Final from Last 3 Months or Most Recently Relevant to Health Maintenance Insurance CHOICE PRF PPO [place] Care Teams Plunger Shovel Operator Relationship Specialty Start Date End Date Jessica Eller PA [address] [place], [place] [id number] PCP - General Internal Medicine 07/20/20
--- OUTSIDE RECORDS SUMMARY | 2024-09-26 18:24 | XMS_ITS | Encounter Summary ---
Author Organization [facility] Address [address] [facility] [address] [place] [address] Care Team Providers Care Senior Engineering Tech Name Role Phone Jessica Eller Primary Care Provider +1- [phone] Reason for Visit * Reason Comments Anxiety/Depression Immunizations Encounter Details Date Type Department Care Team (Late st Contact Info) Description 07/06/2021 10:00 AM CDT Office Visit [facility] Family Medicine [address] [facility] [address] [place] [address] Jessica Eller PA [address] [place], [place] [id number] Anxiety (Primary Dx); Flu vaccine need; Adult BMI <19 kg/sq m Social History [...] points, staff should administer the PHQ-9) 0 01/16/2021 Comments Unknown Sex and Gender Information Value Date Recorded Sex Assigned at Not on file Legal Sex Female 7:34 PM HAND DRAWER IN Gender Identity Not on file Sexual Orientation Not on file documented as of this encounter Last Filed Vital Signs Vital Sign Reading Time Taken Comments Blood Pressure 110/70 07/06/2021 10:11 AM CDT Pulse 84 07/06/2021 10:11 AM CDT Temperature 36.8 ??C (98.2 ??F) 07/06/2021 10:11 AM C DT Respiratory Rate - - Oxygen Saturation 98% 07/06/2021 10:11 AM CDT Inhaled Oxygen Concentration - - Weight 55.6 kg (122 lb 9.6 oz) 07/06/2021 10:11 AM CDT Height 167.6 cm (5' 6 ) 07/06/2021 10:11 AM CDT Body Mass Index 19.79 07/06/2021 10:11 AM CDT documented in this encounter Ordered Prescriptions Prescription Sig Dispense Quantity Refills Last Filled Start Date End Date escitalopram (LEXAPRO) 20 mg tabletIndications: Anxiety Take 1 tablet (20 mg total) by mouth daily 90 tablet 1 07/06/2021 01/29/2022 documented in this encounter Progress Notes * Jessica Eller PA - 07/06/2021 10:00 AM CDT Images from the original note were not included. Subjective/Objective Patient ID: Dara Gonzalez is a 36 y.o. female. Chief Complaint Anxiety/Depression and Immunizations HPI Patient presents to followup chronic concerns. Lexapro 20mg Buspar 15mg bid Had to stop the buspar due to heart palpitations. States she is doing pretty well without the additional BuSpar for anxiety and feels like she is using behavioral changes to help manage the symptoms with the help of the Lexapro. Is happy with where she is at right now. Patient would like flu vaccine today Review of Systems See HPI Vitals: 07/06/21 1011 BP: 110/70 BP Location: Left arm Patient Position: Sitting Pulse: 84 Temp: 36.8 ??C (98.2 ??F) TempSrc: Oral SpO2: 98% Weight: 55.6 kg (122 lb 9.6 oz) Height: 167.6 cm (5' 6 ) Physical Exam Vitals and nursing note reviewed. Constitutional: Appearance: She is well-developed. HENT: Head: Normocephalic and atraumatic. Eyes: Comments: Pupils are equal Skin: General: Skin is warm and dry. Findings: No rash. Neurological: Mental Status: She is alert and oriented to person, place, and time. Assessment/Plan Diagnoses and all orders for this visit: Anxiety (F41.9) (Primary) Assessment & Plan: Stable with Lexapro 20 mg. Will send refills. She is to call she has increased symptoms. Orders: - escitalopram (LEXAPRO) 20 mg tablet; Take 1 tablet (20 mg total) by mouth daily Flu vaccine need (Z23) Assessment & Plan: Vaccine updated in office today Orders: - Flu Vaccine Quad PF 6m+ IM - Fluarix / FluLaval / Fluzone Adult BMI <19 kg/sq m (Z68.1) Assessment & Plan: Weight/BMI is in healthy range. Continue healthy lifestyle to maintain. Jessica Eller PA-C documented in this encounter Miscellaneous Notes * Assessment & Plan Note - Jessica Eller PA - 07/07/2021 8:29 PM CDT Associated Problem(s): Flu vaccine need Vaccine updated in office today * Assessment & Plan Note - Jessica Eller PA - 07/07/2021 8:29 PM CDT Associated Problem(s): Anxiety Stable with Lexapro 20 mg. Will send refills. She is to call she has increased symptoms. * Assessment & Plan Note - Radha Lee MA - 07/06/2021 10:14 AM CDT Associated Problem(s): Adult BMI <19 kg/sq m (Resolved 03/26/2023) Weight/BMI is in healthy range. Continue healthy lifestyle to maintain. documented in this encounter Plan of Treatment Not on file documented as of this encounter Visit Diagnoses Diagnosis Anxiety- Primary Anxiety state, unspecified Flu vaccine need Adult BMI <19 kg/sq m Body Mass Index less than 19, adult documented in this encounter Discontinued Medications Medication Sig Discontinue Reason Start Date End Da te escitalopram (LEXAPRO) 20 mg tabletIndications:Anxiet y Take 1 tablet (20 mg total) by mouth daily Reorder 01/16/2021 07/06/2021 documented as of this encounter Orders Immunization/Injection Count Last Ordered Date First Ordered Date FLU VACCINE QUAD PF 6M+ IM - FLUARIX / FLULAVAL / FLUZONE- SYRINGE 1 07/06/2021 documented in this encounter Care Teams Senior Engineering Tech Relationship Specialty Start Date End Date Jessica Eller PA [address] [address] PCP - General Internal Medicine 07/20/20 documented as of this encounter
--- OUTSIDE RECORDS SUMMARY | 2024-09-26 18:24 | XMS_ITS | Encounter Summary ---
Author Organization [facility] Address [address] [place] [address] Care Team Providers Care Loom Fixer Supervisor Name Role Phone Jessica Eller Primary Care Provider [phone]- [phone] Reason for Visit * Reason Comments Follow-up Encounter Details Date Type Department Care Team (Late st Contact Info) Description 01/16/2021 11:15 AM CDT Office Visit [facility] Family Medicine [address] [place] [address] Jessica Eller PA 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 Gender Identity Not on file Sexual Orientation Not on file documented as of this encounter Last Filed Vital Signs Vital Sign Reading Time Taken Comments Blood Pressure 110/70 01/16/2021 11:01 AM CDT Pulse 74 01/16/2021 11:01 AM CDT Temperature 36.6 ??C (97.8 ??F) 01/16/2021 11:01 AM C DT Respiratory Rate - - Oxygen Saturation 98% 01/16/2021 11:01 AM CDT Inhaled Oxygen Concentration - - Weight 51.8 kg (114 lb 4.8 oz) 01/16/2021 11:01 AM CDT Height 167.6 cm (5' 5.98 ) 01/16/2021 11:01 AM C DT Body Mass Index 18.46 01/16/2021 11:01 AM CDT documented in this encounter Ordered Prescriptions Prescription Sig Dispense Quantity Refills Last Filled Start Date End Date escitalopram (LEXAPRO) 20 mg tabletIndications: Anxiety Take 1 tablet (20 mg total) by mouth daily 90 tablet 1 01/16/2021 busPIRone (BUSPAR) 15 mg tabletIndications: Generalized Anxiety Disorder Take 1 tablet (15 mg total) by mouth 3 (three) times a day Patient is able to take 10mg tid (take 2/3 tab--she states it is scored in thirds) 270 tablet 1 01/16/2021 3 documented in this encounter Progress Notes * eJssica Eller PA - 01/16/2021 11:15 AM CDT Images from the original note were not included. Subjective/Objective Patient ID: Dara Gonzalez is a 36 y.o. female. Chief Complaint Follow-up HPI Patient presents to followup Patel increase. Still on Lexapro and Buspar 15mg bid Hasn't needed the middle dose Review of Systems Constitutional: Negative for fever. HENT: Negative for congestion. Respiratory: Negative for shortness of breath. Cardiovascular: Negative for chest pain. Gastrointestinal: Negative for constipation and diarrhea. Vitals: 01/16/21 1101 BP: 110/70 BP Location: Right arm Patient Position: Sitting Pulse: 74 Temp: 36.6 ??C (97.8 ??F) SpO2: 98% Weight: 51.8 kg (114 lb 4.8 oz) Height: 167.6 cm (5' 5.98 ) Physical Exam Vitals and nursing note reviewed. Constitutional: Appearance: She is well-developed. HENT: Head: Normocephalic and atraumatic. Eyes: Comments: Pupils are equal Cardiovascular: Rate and Rhythm: Normal rate and regular rhythm. Heart sounds: No murmur. Pulmonary: Effort: Pulmonary effort is normal. Breath sounds: Normal breath sounds. Abdominal: Palpations: Abdomen is soft. Tenderness: There is no abdominal tenderness. Skin: General: Skin is warm and dry. Findings: No rash. Neurological: Mental Status: She is alert and oriented to person, place, and time. Assessment/Plan Diagnoses and all orders for this visit: Anxiety (F41.9) (Primary) Assessment & Plan: BuSpar 15 mg b.i.d. and Lexapro 20 mg has made all the difference. Will continue the same dosing and continue to monitor. If she has any increase in her symptoms she may call for adjustment. Orders: - escitalopram (LEXAPRO) 20 mg tablet; Take 1 tablet (20 mg total) by mouth daily Adult BMI <19 kg/sq m (Z68.1) Assessment & Plan: Weight/BMI is in healthy range. Continue healthy lifestyle to maintain. Other orders - busPIRone (BUSPAR) 15 mg tablet; Take 1 tablet (15 mg total) by mouth 3 (three) times a day Patient is able to take 10mg tid (take 2/3 tab--she states it is scored in thirds) Jessica Eller PA-C documented in this encounter Miscellaneous Notes * Assessment & Plan Note - Jessica Eller PA - 02/05/2021 10:47 PM CDT Associated Problem(s): Anxiety BuSpar 15 mg b.i.d. and Lexapro 20 mg has made all the difference. Will continue the same dosing and continue to monitor. If she has any increase in her symptoms she may call for adjustment. * Assessment & Plan Note - Shea Hoang MA - 01/16/2021 11:03 AM CDTAssociated Problem(s): Adult BMI <19 kg/sq m (Resolved 07/06/2021) Weight/BMI is in healthy range. Continue healthy lifestyle to maintain. documented in this encounter Plan of Treatment Not on file documented as of this encounter Visit Diagnoses Diagnosis Anxiety- Primary Anxiety state, unspecified Adult BMI <19 kg/sq m Body Mass Index less than 19, adult documented in this encounter Discontinued Medications Medication Sig Discontinue Reason Start Date End Da te busPIRone (BUSPAR) 15 mg tabletIndications:Genera lized Anxiety Disorder Take 1 tablet (15 mg total) by mouth 3 (three) times a day Patient is able to take 10mg tid (take 2/3 tab--she states it is scored in thirds) Reorder 10/30/2020 01/16/2021 escitalopram (LEXAPRO) 20 mg tabletIndications:Anxiet y Take 1 tablet (20 mg total) by mouth daily Reorder 12/18/2020 01/16/2021 documented as of this encounter Care Teams Loom Fixer Supervisor Relationship Specialty Start Date End Date Jessica Eller PA [address] [place] [address] PCP - General Internal Medicine 07/20/20 documented as of this encounter
--- OUTSIDE RECORDS SUMMARY | 2024-09-26 18:24 | XMS_ITS | Encounter Summary ---
Author Organization [facility] Address [address] [place] [address] Care Team Providers Care Weir Fisherman Name Role Phone Jessica Eller Primary Care Provider [phone]- [phone] Reason for Visit * Reason Onset Date Comments Medication Request 04/09/2023 Encounter Details Date Type Department Care Team (Late st Contact Info) Description 04/09/2023 Telephone [facility] Family Medicine [address] [place] [address] Jessica Eller PA [address] [place] [address] Medication Request Social History Tobacco Use Types Packs/Day Years [...] staff should administer the PHQ-9) 1 03/26/2023 Comments Unknown Sex and Gender Information Value Date Recorded Sex Assigned at Not on file 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 Thanks. * Telephone Encounter - Viridiana Sewell LPN - 04/17/2023 8:38 AM CDT Patient mycharted back that she is feeling much better with her anxiety * Telephone Encounter - Viridiana Sewell LPN - 04/17/2023 8:23 AM CDT Called and LVM and sent mychart message * Telephone Encounter - Jessica Eller PA - 04/10/2023 3:17 PM CDT Please leave open and check on her next week. Thanks, * Telephone Encounter - Viridiana Sewell LPN - 04/10/2023 11:54 AM CDT Called patient and she stated she is feeling better today, she is feeling like she is over the humpwith her anxiety episode that lasted for days. Pt stated since taking Buspar just once daily in themorning instead of TID she is feeling better. She is also taking her Lexapro daily without any missed doses. Pt states she will hold off on hydroxyzine at this time but if things change she will call the office back. * Telephone Encounter - Jessica Eller PA - 04/10/2023 11:35 AM CDT Please call and check on patient -- How is she doing/how is her anxiety? Is she still taking the lexapro 20mg? Has she missed any doses? If she feels like she is more anxious with the buspar, she can stop it. I would be glad to send out hydroxyzine 25mg. She can take one tab q 8 hours for anxiety -- it willmake her sleepy so caution with driving. It will calm her down. Would she like to try the hydroxyzine? * Telephone Encounter - Martine Turner MA - 04/09/2023 1:11 PM CDT Pt reports medication was going well until 04/05/2023 @ Buspar 10mg x1 in the mo ring. . Then she became a bit more anxious and started taking the medication TID, 04/05/2023. Pt reports feeling more and more anxious since taking TID. LAMAR advised pt this information would be forwarded on to the provider for insight. Pt voiced understanding to the communication. * Telephone Encounter - Amelia Vinson - 04/09/2023 12:11 PM CDT Medication Question/Clarification Medication Name(s): busPIRone (BUSPAR) 10 mg tablet What is the question or clarification needed? Patient states she was give this medication at her last appointment. She states that the last 4-5 days she has been having panic attacks. She wanted to ask if this was normal when you start this new medication? If needed, Pharmacy(s) medication(s) should be sent to: N/A Caller???s Callback #: [phone] Additional Comments: N/A Does message need to be routed? Yes-Action Needed documented in this encounter Plan of Treatment Not on file documented as of this encounter Visit Diagnoses Not on filedocumented in this encounter Care Teams Weir Fisherman Relationship Specialty Start Date End Date Jessica Eller PA [address] [address] [place] [address] PCP - General Internal Medicine 07/20/20 documented as of this encounter
--- OUTSIDE RECORDS SUMMARY | 2024-09-26 18:24 | XMS_ITS | Encounter Summary ---
Author Organization [facility] Address [address] [place] [id number] Care Team Providers Care Federal Agent Name Role Phone Jessica Eller Primary Care Provider +1- [phone] Reason for Visit * Reason Comments New Patient Encounter Details Date Type Department Care Team (Late st Contact Info) Description 08/22/2020 10:00 AM BEFORE AND AFTER SCHOOL DAYCARE WORKER Office Visit [facility] Family Medicine [address] [place] [address] Jessica Eller PA [address] [place] [address] Annual physical exam (Primary Dx); Anxiety; Diabetes mellitus screening; Lipid screening; Other fatigue; Need for Tdap vaccination Social History Tobacco Use Types Packs/Day Years [...] on file Legal Sex Female 7:34 PM BEFORE AND AFTER SCHOOL DAYCARE WORKER Gender Identity Not on file Sexual Orientation Not on file documented as of this encounter Last Filed Vital Signs Vital Sign Reading Time Taken Comments Blood Pressure 122/70 08/22/2020 10:17 AM BEFORE AND AFTER SCHOOL DAYCARE WORKER Pulse 72 08/22/2020 10:17 AM BEFORE AND AFTER SCHOOL DAYCARE WORKER Temperature 36.4 ??C (97.5 ??F) 08/22/2020 10:[address] Respiratory Rate - - Oxygen Saturation 98% 08/22/2020 10:17 AM BEFORE AND AFTER SCHOOL DAYCARE WORKER Inhaled Oxygen Concentration - - Weight 50.9 kg (112 lb 4.8 oz) 08/22/2020 10:17 AM BEFORE AND AFTER SCHOOL DAYCARE WORKER Height 167.6 cm (5' 6 ) 08/22/2020 10:17 AM BEFORE AND AFTER SCHOOL DAYCARE WORKER Body Mass Index 18.13 08/22/2020 10:17 AM BEFORE AND AFTER SCHOOL DAYCARE WORKER documented in this encounter Ordered Prescriptions Prescription Sig Dispense Quantity Refills Last Filled Start Date End Date busPIRone (BUSPAR) 7.5 mg tabletIndications: Generalized Anxiety Disorder Take 1 tablet (7.5 mg total) by mouth 3 (three) times a day 90 tablet 2 08/22/2020 10/18/2020 documented in this encounter Progress Notes * Jessica Eller PA - 08/22/2020 10:00 AM CST Images from the original note were not included. Subjective/Objective Patient ID: Dara Gonzalez is a 35 y.o. female. Chief Complaint New Patient HPI Pt presetns to establish care. Was a patient of Dr. Shae Anderson's office is the LEAD SUSTAINABILITY SPECIALIST OCP managed by LE[facility] SUSTAINABILITY SPECIALIST for POF. Had a DXA at dx of POF and was osteopenic Anxiety -- lexapro 20mg Started 6months post and has done great. Still has anxiety sxs that break thru on a daily basis. Hasn't had routine labs. Review of Systems Constitutional: Negative for fever. HENT: Negative for congestion. Respiratory: Negative for shortness of breath. Cardiovascular: Negative for chest pain. Gastrointestinal: Negative for constipation and diarrhea. Vitals: 08/22/20 1017 BP: 122/70 BP Location: Left arm Patient Position: Sitting Pulse: 72 Temp: 36.4 ??C (97.5 ??F) SpO2: 98% Weight: 50.9 kg (112 lb 4.8 oz) Height: 167.6 cm (5' 6 ) Physical Exam Vitals signs and nursing note reviewed. Constitutional: Appearance: She [...] appropirate screenings. Anxiety (F41.9) Assessment & Plan: This is a significant, separately identifiable problem that was evaluated and managed on the same day as the wellness exam Patient has done well with the lexapro but still has break thru anxiety on a daily basis. Discussed treatment options. Buspar 7.5mg tid Reviewed risks, benefit, alternatives, side effects and proper use. Diabetes mellitus screening (Z13.1) Assessment & Plan: Check labs Orders: - Hemoglobin A1c; Future Lipid screening (Z13.220) Assessment & Plan: Check labs Orders: - Lipid panel; Future Other fatigue (R53.83) Assessment & Plan: Probably multifactorial. Check labs and followup to re-evaluate Orders: - Comprehensive metabolic panel; Future - CBC with auto differential; Future - TSH; Future Need for Tdap vaccination (Z23) Assessment & Plan: Updated in office today Orders: - Tdap vaccine greater than or equal to 7yo IM Other orders - busPIRone (BUSPAR) 7.5 mg tablet; Take 1 tablet (7.5 mg total) by mouth 3 (three) times a day Jessica Eller PA-C RE AND AFTER SCHOOL DAYCARE WORKER documented in this encounter Miscellaneous Notes * Assessment & Plan Note - Jessica Eller PA - 09/03/2020 7:58 PM BEFORE AND AFTER SCHOOL DAYCARE WORKER Associated Problem(s): Uses control Happy with ocp RE AND AFTER SCHOOL DAYCARE WORKER * Assessment & Plan Note - Jessica Eller PA - 09/03/2020 7:57 PM BEFORE AND AFTER SCHOOL DAYCARE WORKER Associated Problem(s): Other fatigue (Resolved 07/07/2021) Probably multifactorial. Check labs and followup to re-evaluate RE AND AFTER SCHOOL DAYCARE WORKER * Assessment & Plan Note - Jessica Eller PA - 09/03/2020 7:57 PM BEFORE AND AFTER SCHOOL DAYCARE WORKER Associated Problem(s): Need for Tdap vaccination (Resolved 07/07/2021) Updated in office today RE AND AFTER SCHOOL DAYCARE WORKER * Assessment & Plan Note - Jessica Eller PA - 09/03/2020 7:57 PM BEFORE AND AFTER SCHOOL DAYCARE WORKER Associated Problem(s): Lipid screening (Resolved 07/07/2021) Check labs RE AND AFTER SCHOOL DAYCARE WORKER * Assessment & Plan Note - Jessica Eller PA - 09/03/2020 7:57 PM BEFORE AND AFTER SCHOOL DAYCARE WORKER Associated Problem(s): Diabetes mellitus screening (Resolved 07/07/2021) Check labs RE AND AFTER SCHOOL DAYCARE WORKER * Assessment & Plan Note - Jessica Eller PA - 09/03/2020 7:55 PM BEFORE AND AFTER SCHOOL DAYCARE WORKER Associated Problem(s): Anxiety This is a significant, separately identifiable problem that was evaluated and managed on the same day as the wellness exam Patient has done well with the lexapro but still has break thru anxiety on a daily basis. Discussed treatment options. Buspar 7.5mg tid Reviewed risks, benefit, alternatives, side effects and proper use. RE AND AFTER SCHOOL DAYCARE WORKER * Assessment & Plan Note - Jessica Eller PA - 09/03/2020 7:55 PM BEFORE AND AFTER SCHOOL DAYCARE WORKER Associated Problem(s): Annual physical exam (Resolved 07/07/2021) Encouraged healthy lifestyle, good nutrition and exercise. Encouraged Calcium and Vitamin D and weight bearing exercise for bone health. Reviewed immunizations Reviewed age appropirate screenings. RE AND AFTER SCHOOL DAYCARE WORKER documented in this encounter Plan of Treatment Scheduled Orders Name Type Priority Associated Diagnoses Orde r Schedule Comprehensive metabolic panel Lab Routine Other fatigue Expected: 08/22/2020, Expires: 08/22/2021 Hemoglobin A1c Lab Routine Diabetes mellitus screening Expected: 08/22/2020, Expires: 08/22/2021 Lipid panel Lab Routine Lipid screening Expected: 08/22/2021, Expires: 08/22/2021 CBC with auto differential Lab Routine Other fatigue Expected: 08/22/2020, Expires: 08/22/2021 TSH Lab Routine Other fatigue Expected: 08/22/2020, Expires: 08/22/2021 documented as of this encounter Visit Diagnoses Diagnosis Annual physical exam- Primary Routine general medical examination at a health care facility Anxiety Anxiety state, unspecified Diabetes mellitus screening Screening for diabetes mellitus Lipid screening Screening for lipoid disorders Other fatigue Need for Tdap vaccination Need for prophylactic vaccination with combined hhfmngxury-qdcqetb-xydabrdbj (DTP) vaccine documented in this encounter Historical Medications * This list may reflect changes made after this encounter. ethynodiol diac-eth estradioL (KELNOR,ZOVIA) 1-35 mg-mcg per tablet 08/06/2020 clotrimazole-bet amethasone (LOTRISONE) cream APPLY TO AFFECTED AREA BID FOR 2 WEEKS 07/20/2020 03/19/2023 escitalopram (LEXAPRO) 20 mg tablet TK 1 T PO D 06/19/2020 12/18/2020 added in this encounter Orders Immunization/Injection Count Last Ordered Date First Ordered Date TDAP VACCINE GREATER THAN OR EQUAL TO 7YO IM 1 08/22/2020 documented in this encounter Care Teams Federal Agent Relationship Specialty Start Date End Date Jessica Eller PA [address] [facility] [address] [address] [place] [address] PCP - General Internal Medicine 07/20/20 documented as of this encounter
--- OUTSIDE RECORDS SUMMARY | 2024-09-26 18:24 | XMS_ITS | Encounter Summary ---
Author Organization [facility] Care Team Providers Care Training Program Developer Name Role Phone Unavailable Primary Care Provider Unavailabl e Encounter Details Date Type Department Care Team (Late st Contact Info) Description 10/12/2008 - 09/21/2009 11:59 PM TIRE TESTER Hospital Encounter [facility] Social History Tobacco Use Types Packs/Day Years Used Date Smoking Tobacco: Never Assessed Comments Unknown Sex and Gender Information Value Date Recorded Sex Assigned at Not on file Legal Sex Female 7:34 PM TIRE TESTER Gender Identity Not on file Sexual Orientation Not on file documented as of this encounter Plan of Treatment Not on file documented as of this encounter Visit Diagnoses Not on filedocumented in this encounter
--- OUTSIDE RECORDS SUMMARY | 2024-09-26 18:24 | XMS_ITS | Encounter Summary ---
Author Organization [facility] Address [address] [place] [address] Care Team Providers Care Rounder Hand Name Role Phone Jessica Eller Primary Care Provider +1- [phone] Encounter Details Date Type Department Care Team (Late st Contact Info) Description 03/21/2023 Telephone [facility] Family Medicine [address] [place] [address] Jessica Eller PA 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
--- OUTSIDE RECORDS SUMMARY | 2024-09-26 18:24 | XMS_ITS | Encounter Summary ---
Author Organization [facility] Medical Group Address [address] [facility] [address] [place] [address] Care Team Providers Care Channel Manager Name Role Phone Jessica Eller Primary Care Provider +1- [phone] Reason for Visit * Reason Comments Chronic Condition Pt presents today fo r anxiety. Pt called on 03/21/2023 with anxiety issues. Pt reported that she had stopped her Buspar and didn't have any to take until she could get into see the provider. Pt reports improvements. 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 Gender Identity Not on file Sexual Orientation Not on file documented as of this encounter Last Filed Vital Signs Vital Sign Reading Time Taken Comments Blood Pressure 110/70 03/26/2023 11:20 AM CDT Pulse 80 03/26/2023 11:20 AM CDT Temperature 36.8 ??C (98.2 ??F) 03/26/2023 11:20 AM C DT Respiratory Rate - - Oxygen Saturation 99% 03/26/2023 11:20 AM CDT Inhaled Oxygen Concentration - - Weight 57.3 kg (126 lb 4.8 oz) 03/26/2023 11:20 AM CDT Height 167.6 cm (5' 5.98 ) 03/26/2023 11:20 AM C DT Body Mass Index 20.4 03/26/2023 11:20 AM CDT documented in this encounter Ordered Prescriptions Prescription Sig Dispense Quantity Refills Last Filled Start Date End Date busPIRone (BUSPAR) 10 mg tabletIndications:G eneralized Anxiety Disorder Take 1 tablet (10 mg total) by mouth 3 (three) times a day 90 tablet 3 03/30/2023 documented in this encounter Progress Notes * Malia Brownlee - 03/26/2023 11:00 AM CDT Images from the original note were not included. Subjective/Objective Patient ID: Dara Gonzalez is a 38 y.o. female. Chief Complaint Chronic Condition (Pt presents today for anxiety. Pt called on 03/21/2023 with anxiety issues. Pt reported that she had stopped her Buspar and didn't have any to take until she could get into see theprovider. Pt reports improvements.) HPI EI, 38 yo female, presents for a follow up appointment regarding anxiety. Patient reports a severe increase in anxiety last week. She previously was taking both Lexapro 20 mg and Buspar 15 mg tid but was able to take 10mg tid (she stated it is scored in thirds). Patient stopped taking Buspar approximately 6 months ago after feeling as though her anxiety was getting better. She thought that her anxiety was managed well on only the Lexapro until last week. 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 The Buspar was refilled on 03/21/2023 as 10 mg TID. Patient reports that she is taking the Buspar more as needed. This has been once every morning and occasionally in the afternoon. She has not noted any side effects. Appetite and sleep schedule have returned to normal. Denies any thoughts of harming herself or others. Symptoms are much better controlled within the 5 days of starting. She states that she has started working out which has slightly helped with stress management. She is not seeing a counselor and states that she does not feel like she has time right now as she is dealing with things in regards to her son. Review of Systems See HPI Vitals: 03/26/23 1120 BP: 110/70 BP Location: Left arm Patient Position: Sitting Pulse: 80 Temp: 36.8 ??C (98.2 ??F) TempSrc: Oral SpO2: 99% Weight: 57.3 kg (126 lb 4.8 oz) Height: 167.6 cm (5' 5.98 ) Physical Exam Vitals and nursing note reviewed. Constitutional: Appearance: She is well-developed. HENT: Head: Normocephalic and atraumatic. Eyes: Comments: Pupils are equal Cardiovascular: Heart sounds: No murmur heard. Musculoskeletal: Right lower leg: No edema. Left lower leg: No edema. Skin: General: Skin is warm and dry. Findings: No rash. Neurological: Mental Status: She is alert and oriented to person, place, and time. Psychiatric: Attention and Perception: Attention normal. Mood and Affect: Mood normal. Mood is not anxious or depressed. Speech: Speech normal. Behavior: Behavior normal. Thought Content: Thought content normal. Assessment/Plan Diagnoses and all orders for this visit: Anxiety (F41.9) (Primary) Assessment & Plan: Continue taking Lexapro 20 mg daily. Restart [...] was shown online resources for finding counseling. Orders: - busPIRone (BUSPAR) 10 mg tablet; Take 1 tablet (10 mg total) by mouth 3 (three) times a day BMI 20.0-20.9, adult (Z68.20) Assessment & Plan: Weight/BMI is in healthy range. Continue healthy lifestyle to maintain. *This note is dictated using [employer] voice recognition software, variances in spelling and vocabulary are possible and unintentional.* Malia BEACH [facility] Student Patient was seen in conjunction with Physician Sewer Inspector Student OYNG Mahoney from [facility] Program under the direct supervision of Jessica Eller PA-C. I was present during the entire exam. I saw the patient and examined the patient and agree with the above plan/docume ntation. Jessica Eller PA-C Cosigned by Arun Gonzalez MD at 03/30/2023 10:24 PM CDT documented in this encounter Miscellaneous Notes * Assessment & Plan Note - Malia Brownlee - 03/26/2023 5:23 PM CDTAssociated Problem(s): Anxiety Continue taking Lexapro 20 mg daily. Restart [...] was shown online resources for finding counseling. * Assessment & Plan Note - Martine Turner MA - 03/26/2023 11:23 AM CDT Associated Problem(s): BMI 20.0-20.9, adult Weight/BMI is in healthy range. Continue healthy lifestyle to maintain. documented in this encounter Plan of Treatment Not on file documented as of this encounter Visit Diagnoses Diagnosis Anxiety- Primary Anxiety state, unspecified BMI 20.0-20.9, adult documented in this encounter Discontinued Medications Medication Sig Discontinue Reason Start Date End Da te busPIRone (BUSPAR) 10 mg tabletIndications:Genera lized Anxiety Disorder Take 1 tablet (10 mg total) by mouth 3 (three) times a day Reorder 03/21/2023 03/26/2023 lidocaine viscous (XYLOCAINE) 2 % solution Take 5 mL by mouth every 4 (four) hours as needed (for mouth/throat pain) for up to 7 days Swish and spit 03/19/2023 03/30/2023 clindamycin (CLEOCIN) 300 mg capsule Take 1 capsule (300 mg total) by mouth 2 (two) times a day for 10 days 03/19/2023 03/30/2023 documented as of this encounter Care Teams Channel Manager Relationship Specialty Start Date End Date Jessica Eller PA [address] [address] PCP - General Internal Medicine 07/20/20 documented as of this encounter
--- OUTSIDE RECORDS SUMMARY | 2024-09-26 18:24 | XMS_ITS | Encounter Summary ---
Author Organization [facility] Address [address] [place] [address] Care Team Providers Care Copyright Expert Name Role Phone Jessica Eller Primary Care Provider [phone]- [phone] Reason for Visit * Reason Comments Dental Pain Encounter Details Date Type Department Care Team (Latest Contact Info) Description 03/19/2023 8:15 AM CDT Telemedicine [facility] Medical [facility] Virtual Care [address] [place] [address] Alvina Mullen MD [address] [place] [address] [address] [place] [address] Gingivitis due to hypersensitivity reaction (Primary Dx) Social History Tobacco Use Types Packs/Day Years [...] on file 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 Gonzalez, It was a pleasure speaking with you today. I've sent medication to the pharmacy you requested. Clindamycin- This is an antibiotic. It is to be taken 1 tablet twice daily for 10 days. Most commonside effect is upset stomach and/or diarrhea. Please take with some food if it upsets your stomach and add a probiotic or yogurt to help your bowels if you tend to get diarrhea with antibiotics. Please finish the medication unless you have an adverse reaction to it. Viscous Lidocaine- this is a topical numbing medicine that is the same medicine the dentist can useto numb your mouth. It is to be used as 2 teaspoons twice daily to the area that is painful in yourmouth. Generally, we talk about pouring 2 teaspoons into a small cup and using a Q-Tip to dip in the lidocaine and paint the area where you have pain. If you have no improvement or worsening of your symptoms, please follow up with your Primary Care Provider or a Convenient Care/Urgent Care where someone can see you in person rather than virtually. I strive to provide you with EXCELLENT service. You may receive a survey after your visit today. If you cannot rate your experience as EXCELLENT, please let us know how we can improve and better meet your needs. Thank you for choosing [facility]! Hope you feel better soon! Alvina Mullen MD documented in this encounter Ordered Prescriptions Prescription Sig Dispense Quantity Refills Last Filled Start Date End Date lidocaine viscous (XYLOCAINE) 2 % solution Take 5 mL by mouth every 4 (four) hours as needed (for mouth/throat pain) for up to 7 days Swish and spit 100 mL 03/19/2023 3 clindamycin (CLEOCIN) 300 mg capsule Take 1 capsule (300 mg total) by mouth 2 (two) times a day for 10 days 20 capsule 03/19/2023 3 documented in this encounter Progress Notes * Alvina Mullen MD - 03/19/2023 8:15 AM CDT Images from the original note were not included. This was a telemedicine visit with Dara Gonzalez alone which took place via real-time videoconnection with [facility]. During the visit, I was located at home and the patient was located at home [facility]. The patient visit started at 0817 and ended at 0827. My total encounter time on 03/19/2023 was 21 minutes which was spent in the activities documented in the note. This includes time s pent prior to the visit and after the visit in direct care of the patient. This time does not include time spent in any separately reportable services. I have explained the option of participating in a telemedicine visit to the patient. After being given an opportunity to ask questions about and discuss this type of visit, the patient verbally consented to proceeding with the telemedicine visit. The patient understands that this service replaces an office visit and they may be billed and/or responsible for any applicable copayments. Subjective/Objective Patient ID: Dara Gonzalez is a 38 y.o. female. Chief Complaint Dental Pain c/o 4 day h/o left upper gum pain. States she used a tooth whitening solution and a few minutes to hour later she felt the gums around the left maxillary wisdom tooth were swollen and painful. Statesthe first 1-2 days she noticed her gums were bleeding. They stopped bleeding the 2nd day and haven't since then. States she's used Tylenol and Ibuprofen to help for the pain, but at night the pain ismore noticeable and it's making her anxiety worse. Having difficulty eating or drinking for the last few days b/c pain and anxiety. States she doesn't have a dentist now b/c she's without dental insurance and hasn't found a new dentist yet. States she's had problems with gingivitis in the past and an abx has helped. Dental Pain This is a new problem. The current episode started in the past 7 days. The problem occurs constantly. The problem has been waxing and waning. The pain is moderate. Associated symptoms include oral bleeding. Pertinent negatives include no difficulty swallowing, facial pain, fever, sinus pressure or thermal sensitivity. She has tried acetaminophen and NSAIDs for the symptoms. The treatment providedmoderate relief. Review of Systems Constitutional: Negative for fever. HENT: Negative for sinus pressure. Physical Exam Vitals reviewed: Physical exam is limited by this being a telemedicine visit.. Constitutional: General: She is not in acute distress. Appearance: Normal appearance. She is not ill-appearing, toxic-appearing or diaphoretic. HENT: Head: Normocephalic and atraumatic. Right Ear: External ear normal. Left Ear: External ear normal. Nose: Nose normal. Mouth/Throat: Mouth: Mucous membranes are moist. Comments: Unable to visualize the posterior aspect of her mouth on this video visit. Eyes: General: No scleral icterus. Right eye: No discharge. Left eye: No discharge. Extraocular Movements: Extraocular movements intact. Conjunctiva/sclera: Conjunctivae normal. Pupils: Pupils are equal, round, and reactive to light. Pulmonary: Effort: Pulmonary effort is normal. Comments: Pt was able to speak in full and complete sentences. Pt was not using accessory muscles to breathe. Skin: Capillary Refill: Capillary refill takes less than 2 seconds. Neurological: General: No focal deficit present. Mental Status: She is alert and oriented to person, place, and time. Psychiatric: Mood and Affect: Mood normal. Behavior: Behavior normal. Thought Content: Thought content normal. Judgment: Judgment normal. I have reviewed the most recent progress note prior to this visit. Assessment/Plan Diagnoses and all orders for this visit: Gingivitis due to hypersensitivity reaction (K05.10, T78.40XA) (Primary) Gingival inflammation and pain likely 2' to use of tooth whitening solution. Clindamycin and topical Viscous Lidocaine erx'ed to pharmacy. Instructed on use and possible side effects of the medicines. If any problems or questions or no improvement of symptoms in the next few days, please f/u w/ dentist. If symptoms worsen, go to the ED. Pt verbalized understanding. Other orders - clindamycin (CLEOCIN) 300 mg capsule; Take 1 capsule (300 mg total) by mouth 2 (two) times a day for 10 days - lidocaine viscous (XYLOCAINE) 2 % solution; Take 5 mL by mouth every 4 (four) hours as needed (for mouth/throat pain) for up to 7 days Swish and spit Alvina Mullen MD documented in this encounter Plan of Treatment Not on file documented as of this encounter Visit Diagnoses Diagnosis Gingivitis due to hypersensitivity reaction- Primary documented in this encounter Discontinued Medications Medication Sig Discontinue Reason Start Date End Da te clotrimazole-betamethas one (LOTRISONE) cream APPLY TO AFFECTED AREA BID FOR 2 WEEKS 07/20/2020 03/19/2023 documented as of this encounter Care Teams Copyright Expert Relationship Specialty Start Date End Date Jessica Eller PA [address] [facility] [address] [place] [address] PCP - General Internal Medicine 07/20/20 documented as of this encounter
--- OUTSIDE RECORDS SUMMARY | 2024-09-26 18:24 | XMS_ITS | Referral Summary ---
Author Organization [facility] [address] [facility] Address [address] [place] [address] Care Team Providers Care Tellers Supervisor Name Role Phone Jessica Eller Primary Care Provider +1- [phone] Allergies Active Allergy Reactions Criticality Noted Date [...] adjustment. Assessment & Plan (10/30/2020 12:09 PM MANAGER MEDICAL): Continue the lexapro. Increase the Buspar to 10mg tid. She can break the 15mg into thirds to make the 10mg. Recheck in 4-6 weeks and if controlled well will change to 10mg tabs. Assessment & Plan (09/03/2020 7:56 PM MANAGER MEDICAL): This is a significant, separately identifiable problem [...] smoker Assessment & Plan (09/03/2020 7:58 PM MANAGER MEDICAL): Happy with ocp Resolved Problems Problem Noted [...] 021 Assessment & Plan (09/03/2020 7:55 PM MANAGER MEDICAL): Encouraged healthy lifestyle, good nutrition and exercise. Encouraged Calcium and Vitamin D and weight bearing exercise for bone health. Reviewed immunizations Reviewed age appropirate screenings. Diabetes mellitus screening 08/22/2020 07/07/2021 Assessment & Plan (09/03/2020 7:57 PM MANAGER MEDICAL): Check labs Lipid screening 08/22/2020 07/07/2021 Assessment & Plan (09/03/2020 7:57 PM MANAGER MEDICAL): Check labs Other fatigue 08/22/2020 07/07/2021 Assessment & Plan (09/03/2020 7:58 PM MANAGER MEDICAL): Probably multifactorial. Check labs and followup to re-evaluate Need for Tdap vaccination 08/22/2020 Assessment & Plan (09/03/2020 7:57 PM MANAGER MEDICAL): Updated in office today Immunizations Name Administration Dates Next Due Influenza, Quadrivalent, Spl it, Preservative Free, Intramuscular 07/06/2021 Influenza, Trivalent, IM (MDV) 09/07/2014 Influenza, Unspecified 10/23/2022(Deferr ed: Patient Refused),10/23/2021(Deferred: Patient Refused),06/22/2020 Pfizer SARS-CoV-2 Monovalent Vaccination (12+ Yrs) PURPLE 12/31/2020,12/07/2020 Tdap 08/22/2020 Social History Tobacco Use Types Packs/Day Years [...] on file Legal Sex Female 7:34 PM MANAGER MEDICAL Gender Identity Not on file Sexual Orientation Not on file Last Filed Vital Signs Vital Sign Reading [...] 03/26/2023 11:20 AM CDT Plan of Treatment Not on file Procedures Procedure Name Priority Date/Time Associated Diagnosis Comments PAP ONLY Routine 10/19/2022 2:19 PM MANAGER MEDICAL from Last 3 Months or Most Recently Relevant to Health Maintenance Results * Pap Only (10/19/2022 2:19 PM MANAGER MEDICAL) Thin prep Historical Provider LAB CYTOLOGY ORDERABLES E dited Result - Final from Last 3 Months or Most Recently Relevant to Health Maintenance Insurance [employer] PPO [place] Care Teams Tellers Supervisor Relationship Specialty Start Date End Date Jessica Eller PA [address] [facility] [address] [place] [address] PCP - General Internal Medicine 07/20/20
--- OUTSIDE RECORDS SUMMARY | 2024-09-26 18:24 | XMS_ITS | Encounter Summary ---
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 Gender Identity Not on file Sexual Orientation Not on file documented as of this encounter Plan of Treatment Not on file documented as of this encounter Procedures Procedure Name Priority Date/Time Associated Diagnosis Comments HM PAP SMEAR WITH HPV Routine 10/19/2022 2:23 PM FHA UNDERWRITER PAP ONLY Routine 10/19/2022 2:19 PM FHA UNDERWRITER HM PAP SMEAR Routine 10/17/2022 12:56 PM FHA UNDERWRITER documented in this encounter Results * HM PAP SMEAR WITH HPV (10/19/2022 2:23 PM FHA UNDERWRITER) [facility] Provider HEALTH MAINTENANCE Final Result * Pap Only (10/19/2022 2:19 PM FHA UNDERWRITER) Thin prep [facility] Provider LAB CYTOLOGY ORDERABLES E dited Result - Final * HM PAP SMEAR (10/17/2022 12:56 PM FHA UNDERWRITER) [facility] Provider HEALTH MAINTENANCE Edited Result - Final EXTERNAL LAB documented in this encounter Visit Diagnoses Not on filedocumented in this encounter Care Teams Tie Layer Relationship Specialty Start Date End Date Jessica Eller PA [address] [facility] [address] [place] [address] PCP - General Internal Medicine 07/20/20 documented as of this encounter
--- OUTSIDE RECORDS SUMMARY | 2024-09-26 18:24 | XMS_ITS | Encounter Summary ---
Author Organization [facility] Medical [facility] Address [address] [facility] [address] [place] [address] Care Team Providers Care Legal Administrative Secretary Name Role Phone Jessica Eller Primary Care Provider +1- [phone] Encounter Details Date Type Department Care Team (Late st Contact Info) Description 03/21/2023 Orders Only [facility] Family Medicine [address] [place] [address] Jessica Eller PA [address] [place] [address] Social History Tobacco Use Types [...] on file 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 Gender Identity Not on file Sexual Orientation Not on file documented as of this encounter Ordered Prescriptions Prescription Sig Dispense Quantity Refills Last Filled Start Date End Date busPIRone (BUSPAR) 10 mg tabletIndications: Generalized Anxiety Disorder Take 1 tablet (10 mg total) by mouth 3 (three) times a day 90 tablet 03/21/2023 03/26/2023 documented in this encounter Plan of Treatment [...] tab--she states it is scored in thirds) 01/16/2021 03/21/2023 documented as of this encounter Care Teams Legal Administrative Secretary Relationship Specialty Start Date End Date Jessica Eller PA [address] [address] PCP - General Internal Medicine 07/20/20 documented as of this encounter
--- OUTSIDE RECORDS SUMMARY | 2024-09-26 18:24 | XMS_ITS | Encounter Summary ---
Author Organization [facility] Medical [facility] Address [address] [place] [id number] Care Team Providers Care Pipe Cleaning Machine Operator Name Role Phone Jessica Eller Primary Care Provider [phone] Reason for Visit * Reason Comments Review Medications Encounter Details Date Type Department Care Team (Late st Contact Info) Description 10/30/2020 9:30 AM ABSTRACT CHECKER Office Visit [facility] [address] [place] [address] Jessica Eller PA [address] [place] [address] Anxiety (Primary Dx) Social History Tobacco Use Types [...] on file Legal Sex Female 7:34 PM ABSTRACT CHECKER Gender Identity Not on file Sexual Orientation Not on file documented as of this encounter Last Filed Vital Signs Vital Sign Reading Time Taken Comments Blood Pressure 110/70 10/30/2020 9:42 AM ABSTRACT CHECKER Pulse 94 10/30/2020 9:42 AM ABSTRACT CHECKER Temperature 36.1 ??C (96.9 ??F) 10/30/2020 9:42 AM CS T Respiratory Rate - - Oxygen Saturation 99% 10/30/2020 9:42 AM ABSTRACT CHECKER Inhaled Oxygen Concentration - - Weight 52.5 kg (115 lb 11.2 oz) 10/30/2020 9:42 AM ABSTRACT CHECKER Height 167.6 cm (5' 6 ) 10/30/2020 9:42 AM ABSTRACT CHECKER Body Mass Index 18.67 10/30/2020 9:42 AM ABSTRACT CHECKER documented in this encounter Ordered Prescriptions Prescription Sig Dispense Quantity Refills Last Filled Start Date End Date busPIRone (BUSPAR) 15 mg tabletIndications: Generalized Anxiety Disorder Take 1 tablet (15 mg total) by mouth 3 (three) times a day Patient is able to take 10mg tid (take 2/3 tab--she states it is scored in thirds) 135 tablet 1 10/30/2020 documented in this encounter Progress Notes * Jessica Eller PA - 10/30/2020 9:30 AM CST Images from the original note were not included. Subjective/Objective Patient ID: Dara Gonzalez is a 35 y.o. female. Chief Complaint Review Medications HPI Patient presents to followup new start Buspar. 7.5mg tid -- by taking a half tab of the 15mg which is preferred by her insurance. She can tell a difference. Had one panic attack and normal she has to go home but she was able to work herself thru it and go to the game. She has never been able to work thru it so quickly. No side effects. Willing to increase as still has a few breakthru sxs. Still taking lexapro and tolerating well. Review of Systems Constitutional: Negative for fever. HENT: Negative for congestion. Respiratory: Negative for shortness of breath. Cardiovascular: Negative for chest pain. Gastrointestinal: Negative for constipation and diarrhea. Vitals: 10/30/20 0942 BP: 110/70 BP Location: Left arm Patient Position: Sitting Pulse: 94 Temp: 36.1 ??C (96.9 ??F) TempSrc: Temporal SpO2: 99% Weight: 52.5 kg (115 lb 11.2 oz) Height: 167.6 cm (5' 6 ) [...] Anxiety (F41.9) (Primary) Assessment & Plan: Continue the lexapro. Increase the Buspar to 10mg tid. She can break the 15mg into thirds to make the 10mg. Recheck in 4-6 weeks and if controlled well will change to 10mg tabs. Other orders - busPIRone (BUSPAR) 15 mg tablet; Take 1 tablet (15 mg total) by mouth 3 (three) times a day Patient is able to take 10mg tid (take 2/3 tab--she states it is scored in thirds) Jessica Eller PA-C RACT CHECKER documented in this encounter Miscellaneous Notes * Assessment & Plan Note - Jessica Eller PA - 10/30/2020 12:08 PM ABSTRACT CHECKER Associated Problem(s): Anxiety Continue the lexapro. Increase the Buspar to 10mg tid. She can break the 15mg into thirds to make the 10mg. Recheck in 4-6 weeks and if controlled well will change to 10mg tabs. RACT CHECKER documented in this encounter Plan of Treatment Not on file documented as of this encounter Visit Diagnoses Diagnosis Anxiety- Primary Anxiety state, unspecified documented in this encounter Discontinued Medications Medication Sig Discontinue Reason Start Date End Da te busPIRone (BUSPAR) 15 mg tabletIndications:Genera lized Anxiety Disorder Take 0.5 tablets (7.5 mg total) by mouth 3 (three) times a day Reorder 10/18/2020 10/30/2020 documented as of this encounter Care Teams Pipe Cleaning Machine Operator Relationship Specialty Start Date End Date Jessica Eller PA [address] [facility] [address] [place] [address] PCP - General Internal Medicine 07/20/20 documented as of this encounter
== END 2024-09-19 16:06 | disposition home or self-care (01) ==
PROVIDERS: Emergency Provider Nurse Practitioner Family; PCP Nurse Practitioner Family
DX: S93.601A Unspecified sprain of right foot, initial encounter (principal); W10.9XXA Fall (on) (from) unspecified stairs and steps, initial encounter
CPT/HCPCS: 73630; 99213; G0463

== ENCOUNTER 2024-11-12 08:00 | Outpatient (CLI) | payer BC, SELFPAY ==
--- NOTE | ~2024-11-12 | US_ITS ---
EXAMINATION: US soft tissue head and neck DATE: 11/12/2024 08:12 INDICATION: Localized swelling, mass and lump, head. TECHNIQUE: Multiple grayscale and Doppler ultrasound images of the head and neck were obtained. COMPARISON: None FINDINGS: In the right posterior head and neck at the base of the skull, there is a 4.7 x 1.6 x 3.3 c m subcutaneous mass with similar echotexture and echogenicity to normal subcutaneous fat, consistent with a lipoma. IMPRESSION: 1. 4.7 cm subcutaneous lipoma in right posterior head and neck. Reviewed, dictated and finalized at location A. PATIONAL HYGIENIST
== END 2024-11-12 08:01 | disposition home or self-care (01) ==
PROVIDERS: PCP Nurse Practitioner Family; Visit Provider Nurse Practitioner Family
DX: D17.0 Benign lipomatous neoplasm of skin and subcutaneous tissue of head, face and neck (principal)
CPT/HCPCS: 76536

== ENCOUNTER 2025-02-16 15:17 | Outpatient (CLI) | payer BC, SELFPAY ==
--- NOTE | ~2025-02-16 | MM_ITS ---
EXAMINATION: MM screening flakito BI w joao HISTORY: Screening TECHNIQUE: Craniocaudal and mediolateral oblique 3-D tomosynthesis images were obtained and synthetic 2-D images were generated. CAD analysis was submitted and interpreted. COMPARISON: No prior mammogram is available for comparison at this institution. BREAST PARENCHYMAL COMPOSITION: Dense: The breasts are extremely dense, which lowers the sensitivity of mammography. FINDINGS: There is no evidence of suspicious mass, calcification, or architectural distortion to sugg est malignancy in either breast. There has been no suspicious interval change. IMPRESSION: 1. No mammographic evidence of malignancy. 2. Recommend routine screening mammography in one year. BI-RADS Category 1: Negative Reviewed, dictated and finalized at location A.
== END 2025-02-16 15:18 | disposition home or self-care (01) ==
LOC: MICIMG 15:18
PROVIDERS: PCP Nurse Practitioner Family; Visit Provider Obstetrics & Gynecology Gynecology
DX: Z12.31 Encounter for screening mammogram for malignant neoplasm of breast (principal)
CPT/HCPCS: 77063; 77067